=== PATIENT | female | born 1975 | race Caucasian/White ===

== ENCOUNTER 2017-09-27 05:43 | Day surgery (SDC) | payer OTHER, SELFPAY ==
--- NOTE | 2017-09-27 | FALS_PTH ---
PATIENT: KELLIE ESPINOSA LOC: [facility] [place] U#:[id number] AGE/SX: 42/F ROOM: RE09/27/[address]: Dr. Anaid Madden MD : [id number] BED: DIS: 09/27/2017 SPEC #: [id number] RECD: 09/27/17 14:53 STATUS: LILI GUAN #: [id number] FRANDY: 09/27/17 00:[address]: Anaid Leggett DEPT: SURGICAL PATHOLOGY RECD BY: Fernando Carrion ENTERED: 09/27/17 14:53 SP TYPE: FALL TUBES OTHR DR: Out of [facility] Doctor Tissues: Fallopian tube Procedures: Surgery Specimen Level II Surgery Specimen Level IV HEADER OPERATION: Hysteroscopy, diagnostic, IUD removal PRE-OP DIAGNOSIS: Desire for sterilization TISSUE SUBMITTED: Bilateral fallopian tubes MICROSCOPIC DIAGNOSIS Right and left fallopian tubes, bilateral salpingectomies: Two complete segments of fallopian tubes. One fallopian tube with benign paratubal cyst. AM:jasmine 09/28/17 MICROSCOPIC DESCRIPTION Slides are reviewed. GROSS DESCRIPTION Received is one container labeled with the patient's name and designated bilateral fallopian tubes. The specimen consists of two fallopian tubes. Both fallopian tubes have an average length of 6 cm and average diameter of 0.6 cm. Both fallopian tubes have fimbriated ends that appear normal in appearance. No mass lesions are identified. Supervisor Special Effects sections from both fallopian tubes are submitted in two cassettes as follows: 1 ? one fallopian tube, 2 ? the other fallopian tube. / AM:jasmine 09/27/17 TC:5 CPT: 85953, 25006
[2017-09-27 06:12] VITALS: BP 151/93; PULSE 83; RESP 16; TEMP 36.6; O2SAT 95; BMI 32.9
[2017-09-27 06:24] LABS: Internal QC Validated? YES +Cl - CLEAR BKGD; Pregnancy, Urine Negative Negative
[2017-09-27 06:29] LABS: Hematocrit 39.3 % (37-47); Hemoglobin 13.6 g/dl (12.0-15.0); Mean Corp Hgb Conc 34.6 g/gl (32-36); Mean Corpuscular Hgb 31.5 pg (27.0-32.0); Mean Platelet Vol. 10.2 fl (6.2-12.0); Platelet Count 301 K/mm3 (150-450); RBC Distribution Width CV 11.9 % (11.6-14.6); RBC Distribution Width SD 38.8 fl (35.1-43.9); Red Blood Count 4.32 M/mm3 (4.2-5.4); White Blood Count 6.9 K/mm3 (4.4-11.0)
[2017-09-27 06:30] LABS: Scan Indicated on CBC? Y/N NO
[2017-09-27 06:54] LABS: Thyroid Stim Hormone (TSH) 1.09 uIU/mL (0.358-3.74)
[2017-09-27] MEDS: Bupivacaine Mpf 0.5% 30 ML VIAL (08:16)
--- NOTE | 2017-09-27 08:19 | PCM.OPRPT ---
Problem List (1) Sterilization Status: Acute (2) Encounter for IUD removal Status: Acute Report of Operation Date of Procedure: 09/27/17 Pre-Operative Diagnosis: IUD strings missing, sterilization request Post-Operative Diagnosis: IUD strings missing, sterilization request Surgery/Procedure Performed:: IUD retrieval, laparoscopic bilateral salpingectomy Description of Surgical Findings:: Normal-appearing ovaries and tubes bilaterally. Small uterus with subserosal fibroid. beach attendant: Dixie Mendoza Type of Anesthesia:: General, Local Anesthesiologist: Crystal Swartz Specimen's removed: Bilateral tubes Estimated Blood Loss (mL): 5 Fluids Replaced: 800 mL Description of Procedure: Indication: Ms. Kline is a 42-year-old para 1132 with a Mirena IUD in situ ?7 years. The strings were not visualized on exam however the IUD was localized on ultrasound. Following counseling she opted to proceed with thorascopic IUD retrieval and laparoscopic bilateral salpingectomy for further contraception. Risks, benefits, indications, alternatives were reviewed at length. Procedure: The patient was taken to the operating room and placed in the dorsal supine position. Signed and was performed. She was induced under general anesthesia and intubated. She is placed into dorsal lithotomy and the arms were tucked at the sides. An examination under anesthesia was performed. The perineum and abdomen were prepped and draped in sterile fashion. The patient was placed into a high lithotomy and a bivalve speculum placed into the vagina. The cervix was visualized and grasped the anterior cervical lip using a single-tooth tenaculum. A Conn cannula was placed within the uterus and secured to the tenaculum. The speculum was removed from the vagina. Patient was placed into low lithotomy and attention was turned to the abdomen. An inferior umbilicus incision was made using scalpel. The Veress needle was placed with successful hanging drop test and no aspirate. The abdomen was insufflated to 15 mmHg. The Veress needle was removed and a 5 mm port was placed under laparoscopic guidance. Second and third incisions are made in the left and right lower quadrant under transillumination and 5 mm ports were also placed at those sites. The patient was placed into Trendelenburg and the pelvis inspected and appeared normal. The left tubal fimbria were identified and the mesosalpinx was serially clamped, coagulated, and cut using the Enseal device to the level of the uterine cornua and appendectomy performed. In similar fashion the right salpingectomy was also performed. The tubes were removed via the ports without difficulty. The surgical sites were again inspected and there was excellent hemostasis. The abdomen was desufflated. And the trochars were removed. It was closed using 4-0 Monocryl. Steri-Strips and OpSite dressings were placed over the incisions. Attention was again turned to the perineum. The patient was placed into a lithotomy. The bivalve speculum placed into the vagina and the tenaculum and uterine manipulator were removed. The tenaculum site was hemostatic. Patient was placed into dorsal supine position awakened, extubated, and transferred to the recovery room. Sponge counts were correct ?2. - Admit VTE Documentation VTE Present on Admission: No VTE Mechan Device Prophylaxis: SCD's VTE Pharm Prophylaxis ordered?: No
[2017-09-27 08:30] VITALS: BP 151/93; BP 152/83; PULSE 105; RESP 16; TEMP 36.5; O2SAT 95
--- NOTE | 2017-09-27 08:37 | DCINST_ITS ---
- Discharge Diagnoses Current Active Problems: Current Active and Chronic Problems Sterilization (Acute) Encounter for IUD removal (Acute) Reason(s) for Visit for Discharge Instructions: Mirena IUD retrieval. Bilateral salpingectomy You will use the following diet at home:: No restrictions Discharge Activity: Return to Normal Activity May resume sexual activity in: 4 weeks Lifting Restrictions: 10-20lb Call your doctor if you observe: Fever of 101 or Higher, Inability to urinate, Inability to have a bowel movement, Using more than one pad per hour, Shortness of breath, Chest pain, Calf discomfort, Uncontrolled pain Suture Line Care: Avoid Pulling/Pushing Remove Dressing in (days):: 1 Cleanse incision/area with: Soap & Water Allergies/Adverse Reactions: Allergies No Known Allergies Allergy (Verified 09/26/17 16:24) Medications to take at Discharge Liothyronine Sodium [Cytomel] 5 mcg PO QHS 09/26/17 Simvastatin [Zocor] 40 mg PO QHS 09/26/17 Docusate Sodium [Colace] 100 mg PO BID PRN PRN #60 cap 09/27/17 Ibuprofen 600 mg PO TID PRN #30 tab 09/27/17 Oxycodone [Oxyir] 5 mg PO Q4H PRN PRN #20 tablet 09/27/17 The following prescriptions were given: Oxycodone [Oxyir] 5 mg PO Q4H PRN PRN #20 tablet PRN Reason: Pain Docusate Sodium [Colace] 100 mg PO BID PRN PRN #60 cap PRN Reason: Constipation Ibuprofen 600 mg PO TID PRN #30 tab PRN Reason: Pain Primary Care Physician: [facility] ,Out of [Primary Care Provider] - Please Follow Up With: Anaid Alegre MD When: 2 weeks
[2017-09-27 08:45] VITALS: BP 151/93; BP 153/86; PULSE 78; RESP 16; O2SAT 97
[2017-09-27 09:00] VITALS: BP 138/70; BP 151/93; PULSE 75; RESP 16; O2SAT 92
[2017-09-27 09:15] VITALS: BP 135/84; BP 151/93; PULSE 80; RESP 16; TEMP 36.2; O2SAT 92
--- NOTE | 2017-09-27 10:21 | PCM.WORK.EX ---
Work/School Excuse Work/School Excuse for:: Patient Please excuse this person from:: Work From: 09/27/17 through: 10/11/17
[2017-09-27 11:16] VITALS: BP 130/68; BP 151/93; PULSE 76; RESP 18; TEMP 36.3; O2SAT 97
== END 2017-09-27 11:19 | disposition home or self-care (01) ==
LOC: SDC 05:44 → AC 05:45
PROVIDERS: Visit Provider Obstetrics & Gynecology
PROC: 0UJD8ZZ Inspection of Uterus and Cervix, Via Natural or Artificial Opening Endoscopic (ICD-10-PCS; CPT 58555; principal; 2017-09-27 07:00)
PROC: (CPT 58661; 2017-09-27 07:00)
DX: Z30.2 Encounter for sterilization (principal); Z30.432 Encounter for removal of intrauterine contraceptive device; T83.32XA Displacement of intrauterine contraceptive device, initial encounter; N83.8 Other noninflammatory disorders of ovary, fallopian tube and broad ligament; E03.9 Hypothyroidism, unspecified; E78.5 Hyperlipidemia, unspecified; Z87.891 Personal history of nicotine dependence; Z79.899 Other long term (current) drug therapy
CPT/HCPCS: 00840; 58301; 58661; 81025; 84443; 85027; 86850; 86900; 88302; 88305; J7120; J2405

== ENCOUNTER 2022-02-27 04:23 | Outpatient (REF) | payer SELFPAY ==
[2022-02-27 04:24] VITALS: BP 146/79; PULSE 95; RESP 18; TEMP 36.8; O2SAT 99; BMI 28.7
--- NOTE | 2022-02-27 04:37 | EX.ED.VIS.EY ---
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 She irrigated immediately at the eyewash station here at the hospital. She has no eye symptoms right now or vision changes and does not wear contacts. The mother is known to be hepatitis C positive. Patient denies any other symptoms or problems. [facility] Medical History HTN (hypertension) Home Medications carvedilol 6.25 mg tablet 6.25 mg PO BID 02/27/22 [History Last Taken Unknown] losartan 100 mg-hydrochlorothiazide 25 mg tablet 1 tab PO DAILY 02/27/22 [History Last Taken Unknown] rosuvastatin 40 mg tablet 40 mg PO DAILY 02/27/22 [History Last Taken Unknown] Allergy/AdvReac Type Severity Reaction Status Date / Time No Known Allergies Allergy Verified 02/27/22 04:27 Social History Smoking Status: Never smoker ROS ROS ED Constitutional Constitutional ED: Denies chills or fever(s) Eyes Eyes: Reports as per HPI and irritation; Denies blurry vision ENT ENT ED: Denies ear pain, rhinorrhea or sore throat Neurologic Neurologic: Denies headache(s), paresthesias or weakness EXAM Physical Exam Const Vital Signs: 02/27/22 04:24 Temperature 98.3 F Temperature Source Oral Pulse Rate 95 Respiratory Rate 18 Blood Pressure 146/79 H Blood Pressure Mean 101 Pulse Ox 99 Oxygen Delivery Method Room Air Positive well nourished and well developed General Appearance ED: well developed and NAD HEENT atraumatic; Negative for tenderness Mouth ED: Yes lips normal Mouth: lips normal Eyes PERRL and EOMs intact bilaterally Neuro oriented x3, CN's II-XII intact bilaterally and gait normal Sensorium / Orientation: alert Skin Lesions: no lesions Rashes: no rashes MDM MDM MDM Narrative Medical decision making narrative: Patient states that the source/mother did have HIV testing before and was negative, they will perform a rapid HIV now, but assuming it is negative, there is no postexposure prophylaxis indicated or recommended at this time in this scenario. I reassured the patient, she irrigated profusely, I offered it again she states no she did quite a bit and does not feel like she needs more, this is a relatively low risk exposure, but she will need to follow-up with employee health to ensure that she does not seroconvert with regards to hepatitis C. If something changes and her sources HIV returns positive, then I would discuss postexposure prophylaxis. Discharge Plan Triage Chief Complaint: Occup Expose ED Provider: Sami Del Castillo Dx/Rx/DC Orders Clinical Impression: Patient exposure to body fluids Instructions: ED NEEDLE STICK Health Care Worker Prescriptions: No Action carvedilol 6.25 mg Tablet 6.25 mg PO BID Rx Instructions: must administer with a meal/food losartan-hydrochlorothiazide 100-25 mg Tablet 1 tab PO DAILY rosuvastatin 40 mg Tablet 40 mg PO DAILY Primary Care Provider: Care Physician,No Primary Referrals: Health,Employee [NON-STAFF] - As soon as possible (for further eval & instructions regarding follow up and repeat bloodwork) [facility] Doctor,Out of [NON-STAFF] - Disposition Disposition: Home, Self Care
[2022-02-27 04:57] VITALS: BP 146/79; PULSE 95; RESP 18; O2SAT 99
[2022-02-27 09:19] LABS: HIV - WCH Non-Reactive (Nonreactive); Hepatitis B Surface Antibody Reactive; Hepatitis B Surface Antigen Non-Reactive (Nonreactive); Hepatitis C Antibody Non-Reactive (Nonreactive)
== END 2022-02-27 05:00 | disposition home or self-care (01) ==
LOC: ED 04:42
PROVIDERS: Emergency Provider Emergency Medicine; Visit Provider Emergency Medicine
DX: Z77.21 Contact with and (suspected) exposure to potentially hazardous body fluids (principal)
CPT/HCPCS: 36415; 86703; 86706; 86803; 87340; 99281